=== PATIENT | male | born 1995 | race Caucasian/White ===

== ENCOUNTER 2025-04-19 12:52 | Inpatient (IN) | payer MEDICAID ==
[~2025-04-19] VITALS: Ht 167.6 cm; Wt 56.7 kg
[2025-04-19 12:54] VITALS: O2SAT 100
[2025-04-19] MEDS: DIPHENHYDRAMINE 50MG/ML VIAL IV ONE (13:44)
[2025-04-19] MEDS: LACTATED RINGERS 1,000 ML IV SCH (13:44)
[2025-04-19] MEDS: ONDANSETRON HCL 4MG/2ML INJ IV ONE (13:44)
[2025-04-19 13:50] LABS: BASOPHILS % 0.6 % (0.0-2.0); EOSINOPHILS % 0.3 % (0.0-5.0); HEMATOCRIT. 42.6 % (42.0-52.0); HEMOGLOBIN. 14.7 g/dL (14.0-18.0); LYMPHOCYTES % 8.4 % (20.0-50.0); MEAN PLATELET VOLUME 7.3 fl (7.4-10.4); MONOCYTES % 2.0 % (2.0-8.0); NEUTROPHILS % 88.7 % (40.0-76.0); PLATELET 337 x1000/uL (130-400); RED BLOOD CELL COUNT 4.79 mill/uL (4.7-6.1); RED CELL DISTRIBUTION WIDTH 12.8 % (11.6-14.6)
[2025-04-19 13:59] LABS: CREATININE 1.0 mg/dL (0.6-1.3)
[2025-04-19 14:00] LABS: UREA NITROGEN BLOOD 10 mg/dL (9-23)
[2025-04-19 14:01] LABS: ASPARTATE AMINOTRANSFERASE 18 IU/L (<34); TROPONIN I HIGH SENSITIVITY < 4 ng/L (3.0-53)
[2025-04-19 14:02] LABS: BILIRUBIN TOTAL 0.6 mg/dL (0.1-1.0); PROTEIN TOTAL 7.5 g/dL (6.0-8.3)
[2025-04-19 14:47] LABS: PHOSPHORUS 0.9 mg/dL (2.5-4.9)
[2025-04-19] MEDS ORDERED: POTASSIUM PHOSPHATE 30 MMOL in SODIUM CHLORIDE 0.9% 490 ML IV ONE (15:30)
[2025-04-19 16:23] LABS: T4 FREE 1.09 ng/dL (0.89-1.76)
[2025-04-19] MEDS ORDERED: DIPHENHYDRAMINE 50MG/ML VIAL IV PRN (16:30)
[2025-04-19] MEDS ORDERED: ONDANSETRON HCL 4MG/2ML INJ IV PRN (16:30)
[2025-04-19] MEDS: POTASSIUM PHOSPHATE 30 MMOL in SODIUM CHLORIDE 0.9% 490 ML IV NR (16:36)
[2025-04-19 17:16] VITALS: BP 120/72; PULSE 61; RESP 16; TEMP 36.7; O2SAT 100
[2025-04-19 17:31] VITALS: BP 120/67; PULSE 68; RESP 18; TEMP 36.696
[2025-04-19] MEDS: INFLUENZA VACCINE 05/PF 0.5 ML SYRINGE IM ONE (19:02)
[2025-04-19 19:39] VITALS: BP 96/51; PULSE 63; RESP 17; TEMP 36.9; O2SAT 99
[2025-04-19 20:00] VITALS: BP 106/72; PULSE 74; RESP 16; TEMP 36.9; O2SAT 100
[2025-04-19] MEDS: SODIUM CHLORIDE 0.9% 1,000 ML IV SCH (21:37)
[2025-04-20] VITALS: BP 99/56; PULSE 60; RESP 12; TEMP 36.9; O2SAT 97
[2025-04-20 04:00] VITALS: BP 89/44; PULSE 64; RESP 18; TEMP 36.5; O2SAT 98
[2025-04-20 08:00] VITALS: BP 96/54; PULSE 66; RESP 18; TEMP 36.4; O2SAT 98
[2025-04-20 08:49] LABS: BASOPHILS % 0.8 % (0.0-2.0); EOSINOPHILS % 3.2 % (0.0-5.0); HEMATOCRIT. 42.3 % (42.0-52.0); HEMOGLOBIN. 14.1 g/dL (14.0-18.0); LYMPHOCYTES % 17.5 % (20.0-50.0); MEAN PLATELET VOLUME 7.3 fl (7.4-10.4); MONOCYTES % 4.6 % (2.0-8.0); NEUTROPHILS % 73.9 % (40.0-76.0); PLATELET 286 x1000/uL (130-400); RED BLOOD CELL COUNT 4.68 mill/uL (4.7-6.1); RED CELL DISTRIBUTION WIDTH 12.9 % (11.6-14.6)
[2025-04-20 08:55] LABS: CREATININE 1.1 mg/dL (0.6-1.3); UREA NITROGEN BLOOD 11 mg/dL (9-23)
[2025-04-20] MEDS: ENOXAPARIN 40MG/0.4ML SYR SUBCUT SCH (11:00)
[2025-04-20 11:52] LABS: PHOSPHORUS 2.7 mg/dL (2.5-4.9)
[2025-04-20 12:00] VITALS: BP 88/55; PULSE 65; RESP 17; TEMP 36.4; O2SAT 98
[2025-04-20 16:00] VITALS: BP 92/54; PULSE 66; RESP 18; TEMP 36.5; O2SAT 98
[2025-04-20 20:00] VITALS: BP 108/53; PULSE 72; RESP 18; TEMP 36.4; O2SAT 99
[2025-04-21] VITALS: BP 106/53; PULSE 63; RESP 18; TEMP 36.5; O2SAT 98
[2025-04-21 04:00] VITALS: BP 101/49; PULSE 60; RESP 18; TEMP 36.4; O2SAT 99
[2025-04-21 08:00] VITALS: BP 119/69; PULSE 73; RESP 18; TEMP 36.5; O2SAT 97
[2025-04-21] MEDS: ACETAMINOPHEN 325MG TABLET PO PRN (10:30)
[2025-04-21 12:00] VITALS: BP 116/82; PULSE 91; RESP 18; TEMP 36.5; O2SAT 95
[2025-04-21] MEDS ORDERED: ACET-3800 MT (13:28)
[2025-04-21 16:00] VITALS: BP 109/67; PULSE 68; RESP 18; TEMP 36.5; O2SAT 98
[2025-04-21 20:00] VITALS: BP 116/61; PULSE 65; RESP 18; TEMP 36.6; O2SAT 97
[2025-04-21] MEDS: HYDROCODONE/ACETAMINOPHEN 5/325MG TABLET PO PRN (20:57)
[2025-04-22] VITALS: BP 110/48; PULSE 73; RESP 18; TEMP 36.6; O2SAT 96
[2025-04-22 04:00] VITALS: BP 103/55; PULSE 70; RESP 18; TEMP 36.4; O2SAT 99
[2025-04-22 08:00] VITALS: BP 112/55; PULSE 64; RESP 17; TEMP 36.5; O2SAT 100
[2025-04-22 12:00] VITALS: BP 104/54; PULSE 65; RESP 18; TEMP 36.4; O2SAT 100
[2025-04-22 16:00] VITALS: BP 118/64; PULSE 65; RESP 18; TEMP 36.4; O2SAT 97
[2025-04-22 20:00] VITALS: BP 122/65; PULSE 68; RESP 18; TEMP 36.2; O2SAT 99
[2025-04-23] VITALS: BP 92/45; PULSE 60; RESP 18; TEMP 36.3; O2SAT 98
[2025-04-23 04:00] VITALS: BP 106/55; PULSE 70; RESP 18; TEMP 36.3
[2025-04-23 08:00] VITALS: BP 127/62; PULSE 70; RESP 17; TEMP 36.3; O2SAT 100
[2025-04-23 12:00] VITALS: BP 104/54; PULSE 69; RESP 19; TEMP 36.6; O2SAT 100
[2025-04-23 16:00] VITALS: BP 111/47; PULSE 59; RESP 20; TEMP 36.3; O2SAT 100
[2025-04-23 20:00] VITALS: BP 107/53; PULSE 65; RESP 18; TEMP 36.4; O2SAT 98
[2025-04-24] VITALS (7 sets, daily range): BP systolic 103–116; BP diastolic 49–67; PULSE 56–83; RESP 17–20; TEMP 36.2–36.8; O2SAT 96–100
[2025-04-25] VITALS: BP 123/71; PULSE 74; RESP 16; TEMP 36.3; O2SAT 97
[2025-04-25 04:00] VITALS: BP 111/70; PULSE 69; RESP 16; TEMP 36.6; O2SAT 99
[2025-04-25 08:00] VITALS: BP 115/58; PULSE 67; RESP 16; TEMP 36.5; O2SAT 97
[2025-04-25 12:00] VITALS: BP 119/68; PULSE 69; RESP 16; TEMP 36.6; O2SAT 98
[2025-04-25 13:18] VITALS: BP 115/59; PULSE 67; RESP 16; TEMP 97.8
== END 2025-04-25 13:57 | disposition home or self-care (01) | DRG 249 ==
LOC: ER 12:52 → EDBEDREQ 14:04 → 3WST 15:31 → EDBEDREQTM 15:35 → EDBEDREQ 15:35 → EDBEDREQSVC 15:35 → 4WST 04-20
PROVIDERS: ADMIT Internal Medicine; ATTEND Internal Medicine
DX: K52.9 Noninfective gastroenteritis and colitis, unspecified (principal); E83.39 Other disorders of phosphorus metabolism; E05.90 Thyrotoxicosis, unspecified without thyrotoxic crisis or storm; H53.8 Other visual disturbances; Z59.00 Homelessness unspecified
CPT/HCPCS: 36415; 80048; 80053; 83735; 84100; 84439; 84443; 84484; 85025; 93005; 96374; 96375; 99285; J1200; J1650; J2405; J3490; J7040